=== PATIENT | female | born 1990 | race Caucasian/White ===

== ENCOUNTER 2020-06-03 17:43 | Emergency (ER) | payer MEDICAID ==
[2020-06-03 18:00] VITALS: BP 125/85
[2020-06-03] MEDS ORDERED: POLYMYXIN B/TRIMETH OPHTH DROPS LEFTEYE STA (18:41)
--- NOTE | 2020-06-03 18:48 | ED Physician Documentation ---
PD HPI OPHTHO - Stated complaint Stated Complaint: POSS ALLERGIC REACTION - Chief complaint Chief Complaint: Heent - History obtained from History obtained from: Patient - History of Present Illness Timing - onset: Today Timing - duration: Days (1) Timing - details: Gradual onset Pain level max: 1 Pain level now: 1 Location: Left Quality / character: Burning Associated symptoms: Redness, Swelling, Tearing, Discharge Contributing factors: Other (Patient states that she did put on make up for the first time in a long time today). No: Exposed to conjunctivitis, Recent URI, FB, UV light (welding etc), Chemical exposure, acid, Chemical exposure, base, Blunt trauma, Penetrating trauma, Irrigated TAX ADVISOR, Wears glasses, Wears contacts, Work related Recently seen: Not recently seen - Additional information Additional information: Patient is 28 weeks . She is still feeling the baby move. Has not had any vaginal bleeding or abdominal pain. Review of Systems Constitutional: denies: Fever, Chills GI: denies: Vomiting Musculoskeletal: denies: Neck pain, Back pain PD PAST MEDICAL HISTORY - Past Medical History Past Medical History: No - Past Surgical History Past Surgical History: Yes /BLOWING WEASAND: section - Present Medications Home Medications: Ambulatory Orders Medication Instructions Recorded Confirmed Polymyxin B/Trimeth Ophth Drop 1 drops LEFTEYE Q3H 7 Days #1 06/03/20 [Polytrim Ophth Drops] bottle - Allergies Allergies/Adverse Reactions: Allergies Allergy/AdvReac Type Severity Reaction Status Date / Time Penicillins Allergy Emesis Verified 06/03/20 17:59 - Social History Does the pt smoke?: No Smoking Status: Never smoker Does the pt drink ETOH?: No Does the pt have substance abuse?: No - Immunizations Immunizations are current?: Yes - POLST Patient has POLST: No PD ED PE NORMAL - Vitals Vital signs reviewed: Yes - General General: Alert and oriented X 3, No acute distress - HEENT HEENT: PERRL, EOMI, Ears normal, Moist mucous membranes, Pharynx benign, Other (Conjunctival injection and yellow drainage to the left eye. No foreign bodies visible.) - Neck Neck: Supple, no meningeal sign - Cardiac Cardiac: RRR - Respiratory Respiratory: No respiratory distress, Clear bilaterally - Derm Derm: Warm and dry - Neuro Neuro: Alert and oriented X 3 Results - Vitals Vitals: Vital Signs - 24 hr 06/03/20 17:59 Temperature 36.6 C Heart Rate 110 H Respiratory 16 Rate Blood Pressure 125/85 H O2 Saturation 100 Oxygen O2 Source Room air PD MEDICAL DECISION MAKING - ED course Complexity details: considered differential, d/w patient, d/w family ED course: Patient with a left eye bacterial conjunctivitis. Will place on ophthalmic antibiotics for home. Patient counseled regarding signs and symptoms for which I believe and urgent re-evaluation would be necessary. Patient with good understanding of and agreement to plan and is comfortable going home at this time This document was made in part using voice recognition software. While efforts are made to proofread this document, sound alike and grammatical errors may occur. Departure - Departure Disposition: 01 Home, Self Care Clinical Impression: Conjunctivitis Qualifiers: Conjunctivitis type: acute Acute conjunctivitis type: bacterial Laterality: left Qualified Code(s): H10.32 - Unspecified acute conjunctivitis, left eye Condition: Good Instructions: ED Conjunctivitis Bacterial Follow-Up: your,doctor in 1 week [Other] Prescriptions: Polymyxin B/Trimeth Ophth Drop [Polytrim Ophth Drops] 1 drops LEFTEYE Q3H 7 Days #1 bottle Comments: Use the antibiotic drops as prescribed. Return if you worsen. Warm compresses will also help on your left eye. Follow-up with your doctor as needed Discharge Date/Time: 06/03/20 18:51
== END 2020-06-03 18:51 | disposition home or self-care (01) ==
LOC: ED 17:43
DX: O99.891 Other specified diseases and conditions complicating pregnancy (principal); H10.32 Unspecified acute conjunctivitis, left eye; Z3A.28 28 weeks gestation of pregnancy
CPT/HCPCS: 99282; 99284; A9270